=== PATIENT | male | born 1985 | race Caucasian/White ===

== ENCOUNTER 2016-09-06 14:22 | Emergency (ER) | payer OTHER ==
[~2016-09-06] VITALS: Ht 172.7 cm; Wt 70.3 kg
[2016-09-06 14:28] VITALS: BP 111/62
== END 2016-09-06 14:43 | disposition home or self-care (01) ==
LOC: ER 14:24
DX: H10.9 Unspecified conjunctivitis (principal)
CPT/HCPCS: 99283; A4606; Z7610; Z7502

== ENCOUNTER 2016-10-12 13:07 | Emergency (ER) | payer OTHER ==
[~2016-10-12] VITALS: Ht 172.7 cm; Wt 72.6 kg
[2016-10-12 13:57] VITALS: BP 135/99
== END 2016-10-12 13:59 | disposition home or self-care (01) ==
LOC: ER 13:17
DX: B35.0 Tinea barbae and tinea capitis (principal)
CPT/HCPCS: 99283; A4606; J3490; Z7610

== ENCOUNTER 2016-10-13 15:13 | Emergency (ER) | payer OTHER ==
[~2016-10-13] VITALS: Ht 172.7 cm; Wt 72.6 kg
[2016-10-13 15:38] VITALS: BP 138/96
[2016-10-13] MEDS ORDERED: HYDROCODONE/APAP 5/325MG 1 EACH TABLET ONE (15:45)
[2016-10-13] MEDS ORDERED: SULFAMETH/TRIMETH 800/160 MG 1 UDTAB TABLET PO ONE ×2 (15:45→16:00)
[2016-10-13] MEDS ORDERED: HYDROCODONE/APAP 5/325MG 1 EACH TABLET PO ONE (16:00)
== END 2016-10-13 16:11 | disposition home or self-care (01) ==
LOC: ER 15:15
DX: L02.811 Cutaneous abscess of head [any part, except face] (principal); F32.9 Major depressive disorder, single episode, unspecified
CPT/HCPCS: 10060; 99283; A4606; A6402; A6407; Z7610

== ENCOUNTER 2016-10-16 12:40 | Emergency (ER) | payer OTHER ==
[~2016-10-16] VITALS: Ht 172.7 cm; Wt 72.6 kg
[2016-10-16 12:40] VITALS: BP 139/86
--- NOTE | 2016-10-16 13:12 | NUR ---
WOUND DRESSING DONE BY EDWINA TEAGUE
--- NOTE | 2016-10-16 13:15 | NUR ---
Patient discharged to home in stable condition. Written and verbal after care instructions given. Patient verbalizes understanding of instruction.
== END 2016-10-16 13:15 | disposition home or self-care (01) ==
LOC: ER 12:41
DX: Z48.00 Encounter for change or removal of nonsurgical wound dressing (principal); F32.9 Major depressive disorder, single episode, unspecified
CPT/HCPCS: 99282; A4606; A6402; Z7610

== ENCOUNTER 2016-12-14 17:43 | Emergency (ER) | payer OTHER ==
[~2016-12-14] VITALS: Ht 172.7 cm; Wt 72.6 kg
[2016-12-14 17:43] VITALS: BP 135/82
== END 2016-12-14 18:34 | disposition home or self-care (01) ==
LOC: ER 17:45
DX: L02.412 Cutaneous abscess of left axilla (principal); F32.9 Major depressive disorder, single episode, unspecified
CPT/HCPCS: A4606; A6402; Z7610

== ENCOUNTER 2017-01-17 00:38 | Emergency (ER) | payer OTHER ==
[~2017-01-17] VITALS: Ht 172.7 cm; Wt 74.8 kg
--- NOTE | 2017-01-17 01:00 | NUR ---
PT A/OX4 BREATHING EFFORTLESSLY ON ROOM AIR, PT STATES HE ATE SOME SPICY CRACKERS AND IS NOW HVAING ABD CRAMPING AND NAUSEA, PT DENIES VOMITING OR DIARRHEA, MD MADE AWARE WILL CONTINUE TO MONITOR.
[2017-01-17] MEDS ORDERED: MAG HYDROX/AL HYDROX/SIMETH 30 ML UDC ONE (01:15)
[2017-01-17] MEDS ORDERED: LIDOCAINE VISCOUS 2% UD 15 ML UDC ONE (01:15)
[2017-01-17] MEDS ORDERED: ONDANSETRON HCL/PF 4 MG/2 ML VIAL ONE (01:16)
[2017-01-17] MEDS ORDERED: MAG HYDROX/AL HYDROX/SIMETH 30 ML UDC PO ONE (01:30)
[2017-01-17] MEDS ORDERED: ONDANSETRON HCL/PF 4 MG/2 ML VIAL IM ONE (01:30)
[2017-01-17] MEDS ORDERED: LIDOCAINE VISCOUS 2% UD 15 ML UDC MM ONE (01:30)
[2017-01-17 01:53] VITALS: BP 145/91
== END 2017-01-17 01:54 | disposition home or self-care (01) ==
LOC: ER 00:38
DX: K21.9 Gastro-esophageal reflux disease without esophagitis (principal); F32.9 Major depressive disorder, single episode, unspecified
CPT/HCPCS: 96372; 99283; A4606; J2405; Z7610

== ENCOUNTER 2017-03-08 10:57 | Emergency (ER) | payer OTHER ==
[~2017-03-08] VITALS: Ht 172.7 cm; Wt 72.6 kg
[2017-03-08 11:51] VITALS: BP 160/95
[2017-03-08] MEDS ORDERED: diphenhydrAMINE HCL 50 MG CAPSULE PO ONE (12:30)
[2017-03-08] MEDS ORDERED: predniSONE 10 MG TABLET PO ONE (12:30)
[2017-03-08] MEDS ORDERED: FAMOTIDINE (20 MG) 20 MG TABLET PO ONE (12:30)
[2017-03-08] MEDS ORDERED: FAMOTIDINE (20 MG) 20 MG TABLET ONE (12:46)
[2017-03-08] MEDS ORDERED: diphenhydrAMINE HCL 50 MG CAPSULE ONE (12:46)
[2017-03-08] MEDS ORDERED: predniSONE 20 MG TABLET ONE (12:47)
== END 2017-03-08 12:53 | disposition home or self-care (01) ==
LOC: ER 10:59
DX: T78.3XXA Angioneurotic edema, initial encounter (principal); L50.9 Urticaria, unspecified; F32.9 Major depressive disorder, single episode, unspecified; X58.XXXA Exposure to other specified factors, initial encounter; Y93.89 Activity, other specified; Y92.89 Other specified places as the place of occurrence of the external cause; Y99.9 Unspecified external cause status
CPT/HCPCS: 99284; A4606; J7512; Q0163; Z7610

== ENCOUNTER 2017-04-05 15:01 | Emergency (ER) | payer OTHER ==
[~2017-04-05] VITALS: Ht 172.7 cm; Wt 72.6 kg
[2017-04-05 15:20] VITALS: BP 140/89
== END 2017-04-05 16:28 | disposition home or self-care (01) ==
LOC: ER 15:02
DX: L03.112 Cellulitis of left axilla (principal); F32.9 Major depressive disorder, single episode, unspecified
CPT/HCPCS: A4606; Z7610